=== PATIENT | male | born 1980 | race Two or more races ===

== ENCOUNTER 2025-03-14 13:01 | Emergency (ER) | payer OTHER ==
[2025-03-14 13:06] VITALS: TEMP 98.4; BMI 24.3
[2025-03-14 14:12] LABS: ABSOLUTE IMMATURE GRANULOCYTES 0.01 x10^3/uL (0.0-0.031); BASOPHILS # 0.04 x10^3/uL (0.01-0.08); EOSINOPHIL % 1.1 % (0.8-7.0); EOSINOPHILS # 0.07 x10^3/uL (0.04-0.54); HEMATOCRIT 48.1 % (40.1-51.0); HEMOGLOBIN 16.3 g/dL (13.7-17.5); MCHC 33.9 g/dl (32.3-36.5); MEAN CELL VOLUME 89.1 fl (79.0-92.2); MEAN PLT VOLUME 9.8 fl (9.4-12.4); MONOCYTE # 0.46 x10^3/uL (0.30-0.82); MONOCYTE % 7.2 % (5.3-12.2); PLATELET COUNT 228 x10^3/uL (163-337); RDW 12.4 % (12.1-15.9)
[2025-03-14 14:35] LABS: POTASSIUM 3.7 mmol/L (3.5-5.1)
[2025-03-14 14:39] LABS: ALBUMIN 4.2 g/dl (3.4-5.0); BLOOD UREA NITROGEN 11.9 mg/dL (7-18); CALCIUM 9.2 mg/dL (8.5-10.1); MAGNESIUM 2.1 mg/dL (1.8-2.4)
[2025-03-14 14:43] LABS: BILIRUBIN,TOTAL 0.7 mg/dL (0.2-1); CREATININE 0.9 mg/dL (0.55-1.3)
[2025-03-14 14:45] LABS: TOT PROT 7.4 g/dl (6.4-8.2)
[2025-03-14 16:58] VITALS: BP 170/101; PULSE 70; RESP 16
== END 2025-03-14 17:46 | disposition home or self-care (01) ==
LOC: JER 13:01
DX: R07.2 Precordial pain (principal); R06.02 Shortness of breath; I10 Essential (primary) hypertension; Y93.66 Activity, soccer
CPT/HCPCS: 36415; 71046-TC-FY; 80053; 83735; 84484; 85025; 93005; 93010; 99285-25